=== PATIENT | female | born 1955 | race African-American/Black ===

== ENCOUNTER 2017-10-21 19:14 | Emergency (ER) | payer OTHER ==
[~2017-10-21] VITALS: Ht 172.7 cm; Wt 94.8 kg
[~2017-10-21 19:14] MED LIST: AMLODIPINE PO; AMOXICILLIN 50500 MG PO; ASPIR 8181 MG PO; BACTRIM DS TAB1 EACH PO; CELEXA PO; CIPROFLOXACIN500 M1 PO; FLAGYL500 MG PO; HYDROCHLOROTH12.5 MG; LISINOPRIL PO; LISINOPRIL20 MG PO; LOPRESSOR25 PO; NORCO 5-325 TA1 EACH PO; NORVASC10 MG PO; PEPCID20 MG PO; PERCOCET 5-3251 EACH PO; SARAFEM20 MG PO; SIMVASTATIN PO; TRIAMTERENE-HC1 EAC1 PO; TYLENOL325 MG PO; XANAX 0.5 MG0.5 M1; ZOCOR20 MG PO
[2017-10-21] MEDS ORDERED: LISINOPRIL-HCT1 EAC1 PO (19:22)
[2017-10-21 19:35] LABS: URINE BILIRUBIN NEGATIVE (Negative); URINE BLOOD NEGATIVE (Negative); URINE CLARITY CLEAR; URINE COLOR YELLOW; URINE GLUCOSE-RANDOM* NEGATIVE (Negative); URINE KETONES NEGATIVE (Negative); URINE LEUKOCYTES 1+ (Negative); URINE NITRITE NEGATIVE (Negative); URINE PROTEIN (DIPSTICK) NEGATIVE (Negative); URINE UROBILINOGEN 0.2 E.U./dl (0.2-1.0)
[2017-10-21 19:45] LABS: BACTERIA None Seen /HPF (None Seen); CASTS None Seen /LPF (None Seen); CRYSTALS None Seen /LPF (None Seen); SQUAMOUS 4-10 Moderate /LPF (0-3); URINE RBC None Seen /HPF (0-2); URINE WBC 0-5 Rare /HPF (0-5); WBC CLUMPS Few (None Seen)
[2017-10-21 19:53] LABS: ABSOLUTE NEUTROPHILS 5.1 thou/uL (1.4-8.2); EOSINOPHILS 1.4 % (0.0-3.0); HEMATOCRIT 34.9 % (37.0-47.0); HEMOGLOBIN 11.9 gm/dL (12.0-15.0); MCH 28.9 pg (26.0-34.0); MCHC 34.1 g/dL (28.0-37.0); MCV 84.8 fL (80.0-100.0); MONOCYTES 4.2 % (1.0-8.0); PLATELET COUNT 235 thou/uL (150-400); POLYS 61.4 % (36.0-66.0); RBC 4.11 mil/uL (4.20-5.00); RDW 15.1 % (10.5-14.5); WBC 8.3 thou/uL (4.0-11.0)
[2017-10-21 20:04] LABS: ANION GAP 9 mmol/L (7-16); BUN 15 mg/dL (7-18); CALCIUM 9.4 mg/dL (8.5-10.1); CHLORIDE 98 mmol/L (98-107); CO2 27 mmol/L (21-32); CREATININE 0.9 mg/dL (0.6-1.0); GLUCOSE 159 mg/dL (74-106); POTASSIUM 3.1 mmol/L (3.5-5.1); SODIUM 134 mmol/L (136-145)
[2017-10-21 20:10] LABS: ALBUMIN 3.9 g/dL (3.4-5.0); DIRECT BILIRUBIN < 0.1 mg/dL (<0.1-0.3); LIPASE 139 U/L (73-393); SGOT 16 U/L (15-37); SGPT 15 U/L (30-65); TOTAL BILIRUBIN 0.4 mg/dL (<0.1-1.0); TOTAL PROTEIN 8.1 g/dL (6.4-8.2)
[2017-10-21] MEDS ORDERED: FLAGYL500 MG PO (20:55)
[2017-10-21] MEDS ORDERED: POTASSIUM20 PO (20:55)
[2017-10-21] MEDS ORDERED: NORCO 5-325 TA1 EACH PO (20:55)
[2017-10-21] MEDS ORDERED: CIPROFLOXACIN500 M1 PO (20:55)
[2017-10-21] MEDS ORDERED: DIFLUCAN150 MG PO (21:26)
== END 2017-10-21 21:30 | disposition home or self-care (01) ==
LOC: ER 19:14
PROVIDERS: Emergency Medicine
DX: K57.92 Diverticulitis of intestine, part unspecified, without perforation or abscess without bleeding (principal); E87.6 Hypokalemia; I10 Essential (primary) hypertension; F32.9 Major depressive disorder, single episode, unspecified; M19.90 Unspecified osteoarthritis, unspecified site; E78.00 Pure hypercholesterolemia, unspecified; F41.9 Anxiety disorder, unspecified

== ENCOUNTER → 2018-03-08 | Outpatient (CLI) | payer OTHER ==
[~2018-03-08] MED LIST changes: +DIFLUCAN150 MG PO; +LISINOPRIL-HCT1 EAC1 PO; +POTASSIUM20 PO
== END ==
LOC: CAT 09:41
DX: K57.32 Diverticulitis of large intestine without perforation or abscess without bleeding (principal); K57.30 Diverticulosis of large intestine without perforation or abscess without bleeding; M41.84 Other forms of scoliosis, thoracic region; M47.814 Spondylosis without myelopathy or radiculopathy, thoracic region; Z90.710 Acquired absence of both cervix and uterus

== ENCOUNTER → 2018-08-30 | Outpatient (CLI) | payer OTHER ==
[2018-08-30 10:46] LABS: CREATININE 0.8 mg/dL (0.6-1.0)
== END ==
LOC: CAT 10:03 → LABMALL 10:03
PROVIDERS: Family Medicine
DX: K57.30 Diverticulosis of large intestine without perforation or abscess without bleeding (principal)

== ENCOUNTER → 2019-07-16 | Outpatient (CLI) | payer OTHER | LOC: ULTRA 14:39 | DX: I65.23 Occlusion and stenosis of bilateral carotid arteries (principal); R09.89 Other specified symptoms and signs involving the circulatory and respiratory systems ==

== ENCOUNTER → 2019-08-30 | Outpatient (CLI) | payer OTHER | LOC: ULTRA 10:48 | DX: E04.1 Nontoxic single thyroid nodule (principal) ==

== ENCOUNTER → 2020-03-25 | Outpatient (CLI) | payer OTHER | LOC: RAD 11:14 | PROVIDERS: ATTEND Otolaryngology | DX: E04.1 Nontoxic single thyroid nodule (principal) ==

== ENCOUNTER → 2020-03-27 | Outpatient (CLI) | payer OTHER | LOC: MRI 08:26 | PROVIDERS: ATTEND Family Medicine | DX: M19.011 Primary osteoarthritis, right shoulder (principal); M75.101 Unspecified rotator cuff tear or rupture of right shoulder, not specified as traumatic; M25.411 Effusion, right shoulder; M65.811 Other synovitis and tenosynovitis, right shoulder; G89.29 Other chronic pain ==